=== PATIENT | male | born 1980 | race Caucasian/White ===

== ENCOUNTER 2022-06-24 18:54 | Emergency (ER) | payer OTHER ==
[~2022-06-24] VITALS: Ht 170.2 cm; Wt 99.8 kg
[2022-06-24 20:17] LABS: EOSINOPHILS ABSOLUTE AUTO 0.03 K/mm3 (0.00-0.68); EOSINOPHILS PERCENT AUTO 0 % (0-6)
[2022-06-24 20:27] LABS: BASOPHILS ABSOLUTE AUTO 0.05 K/mm3 (0.00-0.23); BASOPHILS PERCENT AUTO 0 % (0-2); Hematocrit 42.9 % (37.0-53.0); Hemoglobin 15.3 g/dL (13.5-17.5); IMMATURE GRAN ABSOLUTE AUTO 0.11 K/mm3 (0.00-0.10); IMMATURE GRAN PERCENT AUTO 1 % (0-1); LYMPHOCYTES ABSOLUTE AUTO 1.31 K/mm3 (0.84-5.20); LYMPHOCYTES PERCENT AUTO 9 % (21-46); MONOCYTES ABSOLUTE AUTO 0.43 K/mm3 (0.16-1.47); MONOCYTES PERCENT AUTO 3 % (4-13); Mean Corpuscular HGB Conc 35.7 g/dL (31.5-36.5); Mean Corpuscular Volume 90 fL (80-100); NEUTROPHILS ABSOLUTE AUTO 12.65 K/mm3 (1.96-9.15); NEUTROPHILS PERCENT AUTO 87 % (41-73); RDW Coefficient Variation 12.2 % (11.7-14.2); RDW Standard Deviation 40.6 fL (35.1-46.3); Red Blood Cell Count 4.78 M/mm3 (4.30-5.90); White Blood Cell Count 14.58 K/mm3 (4.00-11.30)
[2022-06-24 20:28] LABS: Mean Platelet Volume 9.9 fL (9.1-12.4); Platelet Count 329 K/mm3 (150-400)
[2022-06-24 20:32] LABS: Albumin, Blood 4.5 g/dL (3.4-5.0); Albumin/Globulin Ratio 1.2 (0.8-1.8); Bilirubin, Total 0.8 mg/dL (0.1-1.0); Bun/Creatinine Ratio 11.7 (12.0-20.0); Calcium, Blood 9.2 mg/dL (8.5-10.1); Creatinine, Blood 0.94 mg/dL (0.60-1.20); Globulin, Blood 3.6 g/dL (2.2-4.0); Potassium, Blood 4.4 mmol/L (3.5-5.5); Total Protein, Blood 8.1 g/dL (6.4-8.2)
[2022-06-25] MEDS ORDERED: AMOCLA875 PO (01:44)
[2022-06-25] MEDS ORDERED: PROM12.5S PR (02:15)
== END 2022-06-25 02:17 | disposition home or self-care (01) ==
LOC: ER 18:54
PROVIDERS: Student in an Organized Health Care Education/Training Program
DX: K52.9 Noninfective gastroenteritis and colitis, unspecified (principal); F17.210 Nicotine dependence, cigarettes, uncomplicated; Z88.8 Allergy status to other drugs, medicaments and biological substances
CPT/HCPCS: 74177; 80053; 83690; 85025; 96361; 96374-59; 96375; 96376; 99284-25; A9270; J1170; J1885; J2270; J2405; J2550; J7030; Q9967

== ENCOUNTER → 2022-06-26 | Outpatient (CLI) | payer MEDICARE, OTHER ==
[~2022-06-26] MED LIST: AMOCLA875 PO; ONDA4ODT MM; PROM12.5S PR
[2022-06-26 17:01] LABS: BASOPHILS ABSOLUTE AUTO 0.06 K/mm3 (0.00-0.23); BASOPHILS PERCENT AUTO 1 % (0-2); EOSINOPHILS ABSOLUTE AUTO 0.03 K/mm3 (0.00-0.68); EOSINOPHILS PERCENT AUTO 0 % (0-6); Hematocrit 41.7 % (37.0-53.0); IMMATURE GRAN ABSOLUTE AUTO 0.04 K/mm3 (0.00-0.10); IMMATURE GRAN PERCENT AUTO 0 % (0-1); LYMPHOCYTES ABSOLUTE AUTO 1.42 K/mm3 (0.84-5.20); LYMPHOCYTES PERCENT AUTO 13 % (21-46); MONOCYTES ABSOLUTE AUTO 0.43 K/mm3 (0.16-1.47); MONOCYTES PERCENT AUTO 4 % (4-13); Mean Corpuscular HGB 32.4 pg (26.0-34.0); Mean Corpuscular Volume 90 fL (80-100); NEUTROPHILS PERCENT AUTO 82 % (41-73); RDW Coefficient Variation 12.4 % (11.7-14.2); RDW Standard Deviation 40.5 fL (35.1-46.3); Red Blood Cell Count 4.63 M/mm3 (4.30-5.90); White Blood Cell Count 11.08 K/mm3 (4.00-11.30)
[2022-06-26 17:02] LABS: Mean Platelet Volume 9.4 fL (9.1-12.4); Platelet Count 286 K/mm3 (150-400)
[2022-06-26 17:10] LABS: Albumin, Blood 4.4 g/dL (3.4-5.0); Albumin/Globulin Ratio 1.3 (0.8-1.8); Bilirubin, Total 0.8 mg/dL (0.1-1.0); Calcium, Blood 8.8 mg/dL (8.5-10.1); Creatinine, Blood 1.07 mg/dL (0.60-1.20); Globulin, Blood 3.5 g/dL (2.2-4.0); Potassium, Blood 3.9 mmol/L (3.5-5.5); Total Protein, Blood 7.9 g/dL (6.4-8.2)
== END | disposition home or self-care (01) ==
LOC: LAB SHORT 16:52 → LAB 16:52
PROVIDERS: Physician Assistant Medical
DX: R10.84 Generalized abdominal pain (principal)
CPT/HCPCS: 80053; 85025

== ENCOUNTER 2022-06-29 02:59 | Emergency (ER) | payer MEDICARE ==
[~2022-06-29] VITALS: Ht 170.2 cm; Wt 96.8 kg
[~2022-06-29 02:59] MED LIST changes: -ONDA4ODT MM
[2022-06-29 05:53] LABS: Bun/Creatinine Ratio 14.1 (12.0-20.0); Calcium, Blood 8.9 mg/dL (8.5-10.1); Creatinine, Blood 0.92 mg/dL (0.60-1.20); Magnesium, Blood 2.2 mg/dL (1.6-2.4); Potassium, Blood 3.8 mmol/L (3.5-5.5)
[2022-06-29 05:56] LABS: BASOPHILS ABSOLUTE AUTO 0.07 K/mm3 (0.00-0.23); BASOPHILS PERCENT AUTO 1 % (0-2); EOSINOPHILS ABSOLUTE AUTO 0.04 K/mm3 (0.00-0.68); EOSINOPHILS PERCENT AUTO 0 % (0-6); Hematocrit 39.8 % (37.0-53.0); Hemoglobin 14.4 g/dL (13.5-17.5); IMMATURE GRAN ABSOLUTE AUTO 0.09 K/mm3 (0.00-0.10); IMMATURE GRAN PERCENT AUTO 1 % (0-1); LYMPHOCYTES ABSOLUTE AUTO 2.04 K/mm3 (0.84-5.20); LYMPHOCYTES PERCENT AUTO 18 % (21-46); MONOCYTES ABSOLUTE AUTO 0.59 K/mm3 (0.16-1.47); MONOCYTES PERCENT AUTO 5 % (4-13); Mean Corpuscular HGB 32.3 pg (26.0-34.0); Mean Corpuscular HGB Conc 36.2 g/dL (31.5-36.5); Mean Corpuscular Volume 89 fL (80-100); Mean Platelet Volume 9.6 fL (9.1-12.4); NEUTROPHILS ABSOLUTE AUTO 8.28 K/mm3 (1.96-9.15); NEUTROPHILS PERCENT AUTO 75 % (41-73); Platelet Count 372 K/mm3 (150-400); RDW Coefficient Variation 12.4 % (11.7-14.2); RDW Standard Deviation 40.4 fL (35.1-46.3); Red Blood Cell Count 4.46 M/mm3 (4.30-5.90); White Blood Cell Count 11.11 K/mm3 (4.00-11.30)
[2022-06-29] MEDS ORDERED: PROM12.5S PR (08:27)
[2022-06-29] MEDS ORDERED: ONDA4ODT MM (08:27)
== END 2022-06-29 08:49 | disposition home or self-care (01) ==
LOC: ER 02:59
PROVIDERS: Student in an Organized Health Care Education/Training Program
DX: K52.9 Noninfective gastroenteritis and colitis, unspecified (principal); R11.2 Nausea with vomiting, unspecified; F12.90 Cannabis use, unspecified, uncomplicated; F17.210 Nicotine dependence, cigarettes, uncomplicated; Z88.8 Allergy status to other drugs, medicaments and biological substances
CPT/HCPCS: 80048; 83735; 85025; A9270; J0780; J1790; J1885; J2405; J7030

== ENCOUNTER 2022-09-26 09:27 | Emergency (ER) | payer MEDICARE, OTHER ==
[~2022-09-26] VITALS: Ht 175.3 cm; Wt 86.2 kg
[~2022-09-26 09:27] MED LIST changes: +ONDA4ODT MM
[2022-09-26 11:33] LABS: BASOPHILS ABSOLUTE AUTO 0.07 K/mm3 (0.00-0.23); BASOPHILS PERCENT AUTO 1 % (0-2); EOSINOPHILS ABSOLUTE AUTO 0.02 K/mm3 (0.00-0.68); EOSINOPHILS PERCENT AUTO 0 % (0-6); Hematocrit 44.4 % (37.0-53.0); IMMATURE GRAN ABSOLUTE AUTO 0.06 K/mm3 (0.00-0.10); IMMATURE GRAN PERCENT AUTO 0 % (0-1); LYMPHOCYTES ABSOLUTE AUTO 1.59 K/mm3 (0.84-5.20); LYMPHOCYTES PERCENT AUTO 11 % (21-46); MONOCYTES ABSOLUTE AUTO 0.74 K/mm3 (0.16-1.47); MONOCYTES PERCENT AUTO 5 % (4-13); Mean Corpuscular HGB 30.9 pg (26.0-34.0); Mean Corpuscular Volume 86 fL (80-100); Mean Platelet Volume 9.1 fL (9.1-12.4); NEUTROPHILS ABSOLUTE AUTO 12.37 K/mm3 (1.96-9.15); NEUTROPHILS PERCENT AUTO 83 % (41-73); Platelet Count 386 K/mm3 (150-400); RDW Coefficient Variation 12.2 % (11.7-14.2); RDW Standard Deviation 38.5 fL (35.1-46.3); Red Blood Cell Count 5.17 M/mm3 (4.30-5.90); White Blood Cell Count 14.85 K/mm3 (4.00-11.30)
[2022-09-26 11:54] LABS: Albumin, Blood 4.4 g/dL (3.4-5.0); Albumin/Globulin Ratio 1.3 (0.8-1.8); Bilirubin, Total 1.3 mg/dL (0.1-1.0); Bun/Creatinine Ratio 14.4 (12.0-20.0); Calcium, Blood 9.5 mg/dL (8.5-10.1); Creatinine, Blood 1.04 mg/dL (0.60-1.20); Globulin, Blood 3.4 g/dL (2.2-4.0); Potassium, Blood 3.6 mmol/L (3.5-5.5); Total Protein, Blood 7.8 g/dL (6.4-8.2)
[2022-09-26] MEDS ORDERED: Miralax17 GM PO (14:38)
[2022-09-26] MEDS ORDERED: PHENERGAN25 MG PR (14:38)
== END 2022-09-26 14:56 | disposition home or self-care (01) ==
LOC: ER 09:27
PROVIDERS: Physician Assistant
DX: R10.33 Periumbilical pain (principal); F17.210 Nicotine dependence, cigarettes, uncomplicated; Z88.8 Allergy status to other drugs, medicaments and biological substances; Z79.899 Other long term (current) drug therapy; Z98.890 Other specified postprocedural states
CPT/HCPCS: 36415; 74018; 80053; 83690; 85025; A9270; J1170; J1885; J2060; J2405; J2550; J7120

== ENCOUNTER 2022-12-16 07:08 | Day surgery (SDC) | payer MEDICARE, OTHER ==
[~2022-12-16] VITALS: Ht 170.2 cm; Wt 80.0 kg
[~2022-12-16 07:08] MED LIST changes: +CLON.5 PO; +Miralax17 GM PO; +PHENERGAN25 MG PR; +PROP10 PO; +Prinivil10 MG PO
--- NOTE | 2022-12-16 07:50 | NUR ---
History, Chart, Medications and Allergies reviewed before start of procedure.LUNGS CLEAR. PT STATES SMOKED MARIJUANA AND CIGARETTE THIS MORNING APPROX AN HOUR AGO. PT QUITE ANXIOUS THIS MORNING. PT STATES HE THREW UP ABOUT HALF HIS PREP THIS MORNING. STATES LAST BM WAS CLEAR YELLOW WATER
--- NOTE | 2022-12-16 08:27 | NUR ---
12/16/22 0827 Briana Mary See Anesthesia record History, Chart, Medications and Allergies reviewed before start of procedure. MONITOR INTACT WITH CONTINUOUS PULSE OXIMETRY, CONTINUOUS END TITAL CO2, AND INTERMITTENT BLOOD PRESSURE. 3-LEAD EKG REVIEWED WITH PHYSICIAN PRIOR TO START OF PROCEDURE. O2 VIA N/C INTACT THROUGHOUT SEDATION/PROCEDURE. Bite Block Placed
--- NOTE | 2022-12-16 09:48 | NUR ---
REPORT RECEIVED FROM IAN العراقي RN. PT ABLE TO REPOSITION SELF IN BED. PT REQUESTING PO FLUIDS AND TOLERATING THEM WELL. PT DENIES PAIN OR DISCOMFORT AT THIS TIME.
--- NOTE | 2022-12-16 10:34 | NUR ---
1019 PT REPORT NAUSEA REQUESTING MEDICATION. PT MEDICATED PER ORDERS. PT REPORT NAUSEA RELIEVED AND READY TO GO HOME.
--- NOTE | 2022-12-16 10:36 | NUR ---
Patient up to Ambulate independently. Gait steady. VSS. Discharge instructions reviewed with patient. Patient verbalizes understanding. Copy given to patient to take home. Patient States Post-Procedure ride home has been arranged. Discharged via wheelchair to private car for ride home. PT BELONGINGS RETURNED TO PT.
== END 2022-12-16 22:50 | disposition home or self-care (01) ==
LOC: ORSCMMR 07:08 → ORSCSDS 08:00 → ORSCMMR 08:30 → ORSCSDS 12:45 → ORSCMMR 12:45
PROVIDERS: Student in an Organized Health Care Education/Training Program
PROC: 0DBC8ZX Excision of Ileocecal Valve, Via Natural or Artificial Opening Endoscopic, Diagnostic (ICD-10-PCS; principal; 2022-12-16 08:30)
PROC: 0DB98ZX Excision of Duodenum, Via Natural or Artificial Opening Endoscopic, Diagnostic (ICD-10-PCS; principal; 2022-12-16 08:30)
PROC: 0DB78ZX Excision of Stomach, Pylorus, Via Natural or Artificial Opening Endoscopic, Diagnostic (ICD-10-PCS; principal; 2022-12-16 08:30)
PROC: 0DB58ZX Excision of Esophagus, Via Natural or Artificial Opening Endoscopic, Diagnostic (ICD-10-PCS; principal; 2022-12-16 08:30)
PROC: 0DBP8ZX Excision of Rectum, Via Natural or Artificial Opening Endoscopic, Diagnostic (ICD-10-PCS; principal; 2022-12-16 08:30)
PROC: 0DBL8ZX Excision of Transverse Colon, Via Natural or Artificial Opening Endoscopic, Diagnostic (ICD-10-PCS; principal; 2022-12-16 08:30)
PROC: 0DBE8ZX Excision of Large Intestine, Via Natural or Artificial Opening Endoscopic, Diagnostic (ICD-10-PCS; principal; 2022-12-16 08:30)
DX: R19.7 Diarrhea, unspecified (principal); R10.30 Lower abdominal pain, unspecified; K21.9 Gastro-esophageal reflux disease without esophagitis; R11.0 Nausea; K29.70 Gastritis, unspecified, without bleeding; K44.9 Diaphragmatic hernia without obstruction or gangrene; K63.5 Polyp of colon; K62.1 Rectal polyp; K57.30 Diverticulosis of large intestine without perforation or abscess without bleeding; K64.8 Other hemorrhoids; I10 Essential (primary) hypertension; J44.9 Chronic obstructive pulmonary disease, unspecified; F17.210 Nicotine dependence, cigarettes, uncomplicated; F41.8 Other specified anxiety disorders; Z79.899 Other long term (current) drug therapy
CPT/HCPCS: 88305; 88342; J2250; J2405; J2704; J3010; J7120

== ENCOUNTER 2023-10-18 04:23 | Inpatient (IN) | payer MEDICARE, OTHER ==
[~2023-10-18] VITALS: Ht 170.2 cm; Wt 92.8 kg
[2023-10-18] MEDS ORDERED: Lidocaine 4% 1 Patch TOP ONE (05:00)
[2023-10-18] MEDS ORDERED: Ipratropium/Albuterol SulF 2.5-0.5MG/3 ML Amp INH ONE (06:15)
[2023-10-18] MEDS ORDERED: Ketorolac Tromethamine 30mg Vial IM ONE (06:15)
[2023-10-18] MEDS ORDERED: Acetaminophen 500 MG Tab PO ONE (06:15)
[2023-10-18] MEDS ORDERED: PredniSONE 20 MG Tab PO ONE (06:15)
[2023-10-18 07:19] LABS: Bun/Creatinine Ratio 12.2 (12.0-20.0); Calcium, Blood 9.4 mg/dL (8.5-10.1); Creatinine, Blood 0.74 mg/dL (0.60-1.20)
[2023-10-18 08:05] LABS: BASOPHILS ABSOLUTE AUTO 0.14 K/mm3 (0.00-0.23); BASOPHILS PERCENT AUTO 1 % (0-2); EOSINOPHILS ABSOLUTE AUTO 2.12 K/mm3 (0.00-0.68); EOSINOPHILS PERCENT AUTO 14 % (0-6); Hematocrit 42.1 % (37.0-53.0); Hemoglobin 14.7 g/dL (13.5-17.5); IMMATURE GRAN ABSOLUTE AUTO 0.06 K/mm3 (0.00-0.10); IMMATURE GRAN PERCENT AUTO 0 % (0-1); LYMPHOCYTES ABSOLUTE AUTO 2.08 K/mm3 (0.84-5.20); LYMPHOCYTES PERCENT AUTO 14 % (21-46); MONOCYTES ABSOLUTE AUTO 0.72 K/mm3 (0.16-1.47); MONOCYTES PERCENT AUTO 5 % (4-13); Mean Corpuscular HGB 31.8 pg (26.0-34.0); Mean Corpuscular HGB Conc 34.9 g/dL (31.5-36.5); Mean Corpuscular Volume 91 fL (80-100); Mean Platelet Volume 8.3 fL (9.1-12.4); NEUTROPHILS ABSOLUTE AUTO 9.89 K/mm3 (1.96-9.15); NEUTROPHILS PERCENT AUTO 66 % (41-73); Platelet Count 461 K/mm3 (150-400); RDW Coefficient Variation 12.1 % (11.7-14.2); RDW Standard Deviation 39.7 fL (35.1-46.3); Red Blood Cell Count 4.62 M/mm3 (4.30-5.90); White Blood Cell Count 15.01 K/mm3 (4.00-11.30)
[2023-10-18 08:27] LABS: BASOPHILS PERCENT MAN 0 % (0-2); EOSINOPHILS ABSOLUTE MAN 2.25 K/mm3 (0.00-0.68); EOSINOPHILS PERCENT MAN 15 % (0-6); LYMPHOCYTES ABSOLUTE MAN 0.45 K/mm3 (0.84-5.20); LYMPHOCYTES PERCENT MAN 3 % (21-46); MONOCYTES ABSOLUTE MAN 0.15 K/mm3 (0.16-1.47); MONOCYTES PERCENT MAN 1 % (4-13); NEUTROPHILS ABSOLUTE MAN 12.15 K/mm3 (1.96-9.15); SEG NEUTROPHILS PERCENT MAN 81 % (41-73); TOTAL CELLS COUNTED 100
[2023-10-18] MEDS ORDERED: Morphine Sulfate 4 MG/1 ML Injection IV ONE ×2 (09:10→11:50)
[2023-10-18 09:42] LABS: International Normalized Ratio 0.98; Prothrombin Time Results 10.3 Sec (9.7-11.5)
[2023-10-18 11:08] LABS: Automated BF RBC Count 0.073 M/mm3 (0-0); Automated BF WBC Count 5.457 K/mm3 (0-999)
[2023-10-18 11:10] LABS: Body Fluid WBC Count 5457 /mm3 (0-999); RBC Count, Body Fluid 73000 /mm3 (0-0)
[2023-10-18 11:34] LABS: Glucose, Body Fluid 104 mg/dL; Lactate Dehydrogenase, Body Fl 855 U/L
[2023-10-18] MEDS ORDERED: CefTRIAXone Sodium 1,000 MG in NS 50 ML IV ONE (11:50)
[2023-10-18] MEDS ORDERED: NS 1,000 ML IV SCH (11:50)
[2023-10-18] MEDS ORDERED: Azithromycin 500 MG in NS 250 ML IV ONE (11:50)
[2023-10-18 12:39] LABS: Total Cell Count, Body Fluid 100
[2023-10-18 12:40] LABS: Appearance, Body Fluid Hazy (Clear); Color, Body Fluid Red (None-Yellow)
[2023-10-18] MEDS ORDERED: Nicotine 21 MG PATCH TOP ONE (12:45)
[2023-10-18] MEDS ORDERED: HYDROmorphone HCl/Pf 1MG SYR IV PRN (13:10)
[2023-10-18] MEDS ORDERED: OxyCODONE HCL 5 MG TAB PO PRN (13:15)
[2023-10-18] MEDS ORDERED: FLU VACC QS2023-24(6MOS UP)/PF 60 MCG/0.5 ML SYRINGE IM SCH (13:15)
[2023-10-18] MEDS ORDERED: Acetaminophen 325 MG TABLET PO PRN ×2 (13:15)
[2023-10-18] MEDS ORDERED: Promethazine HCl 25 MG Supp PR PRN (13:20)
[2023-10-18] MEDS ORDERED: ClonazePAM 0.5 MG Tab PO PRN (13:20)
[2023-10-18] MEDS ORDERED: Ketorolac Tromethamine 30mg Vial IV PRN (13:30)
[2023-10-18] MEDS ORDERED: Propranolol HCL 20 MG TAB PO SCH (14:00)
[2023-10-18 15:55] VITALS: BP 145/99
--- NOTE | 2023-10-18 16:29 | NUR ---
SHIFT SUMMARY/ADMISSION NOTE: PATIENT IS A&OX4. PATIENT HAS AN ELEVATED SBP BUT PATIENT REPORTS "THAT IS ABOUT NORMAL FOR ME". PATIENT REPORTS 5/10 PAIN TO HIS RIGHT SIDE AT THIS TIME. HE HAS A BANDAID ON HIS LEFT UPPER BACK FROM A CT GUIDED THORACENTESIS FROM ER THAT HAS LIGHT BRUISING AROUND IT BUT THE BANDAID IS C/D/I. PATIENT IS TOLERATING SMALL AMOUNTS OF PO INTAKE AND HE REPORTS VOIDING IN THE ER BATHROOM. HE IS CURRENTLY LAYING IN BED WITH CALL LIGHT IN REACH AND FAMILY AT BEDSIDE. PATIENT WAS ABLE TO STAND AND WALK FROM THE WHEELCHAIR TO THE BED IN THE ROOM INDEP.
[2023-10-18] MEDS ORDERED: Lidocaine 4% 1 Patch TOP SCH (17:00)
[2023-10-18 19:09] VITALS: BP 136/90
[2023-10-18 20:17] LABS: Influenza A, PCR NEGATIVE (NEGATIVE); Influenza B, PCR NEGATIVE (NEGATIVE); Resp Syncytial Virus, PCR NEGATIVE (NEGATIVE); SARS-Cov-2 (COVID-19) PCR, MMC NEGATIVE (NEGATIVE)
[2023-10-18] MEDS ORDERED: Sennosides 8.6 MG Tab PO SCH (21:00)
[2023-10-18] MEDS ORDERED: Docusate Sodium 100 MG Cap PO SCH (21:00)
[2023-10-18 23:40] VITALS: BP 141/95
[2023-10-18] MEDS ORDERED: Albuterol 2.5 MG/3 ML VIAL INH PRN (23:55)
[2023-10-19 02:17] VITALS: BP 145/92
[2023-10-19 02:45] LABS: BASOPHILS ABSOLUTE AUTO 0.11 K/mm3 (0.00-0.23); BASOPHILS PERCENT AUTO 1 % (0-2); EOSINOPHILS ABSOLUTE AUTO 2.01 K/mm3 (0.00-0.68); EOSINOPHILS PERCENT AUTO 14 % (0-6); Hematocrit 40.4 % (37.0-53.0); Hemoglobin 14.2 g/dL (13.5-17.5); IMMATURE GRAN ABSOLUTE AUTO 0.06 K/mm3 (0.00-0.10); IMMATURE GRAN PERCENT AUTO 0 % (0-1); LYMPHOCYTES ABSOLUTE AUTO 2.94 K/mm3 (0.84-5.20); LYMPHOCYTES PERCENT AUTO 20 % (21-46); MONOCYTES ABSOLUTE AUTO 1.03 K/mm3 (0.16-1.47); MONOCYTES PERCENT AUTO 7 % (4-13); Mean Corpuscular HGB 31.8 pg (26.0-34.0); Mean Corpuscular HGB Conc 35.1 g/dL (31.5-36.5); Mean Corpuscular Volume 91 fL (80-100); Mean Platelet Volume 8.2 fL (9.1-12.4); NEUTROPHILS ABSOLUTE AUTO 8.48 K/mm3 (1.96-9.15); NEUTROPHILS PERCENT AUTO 58 % (41-73); Platelet Count 424 K/mm3 (150-400); RDW Coefficient Variation 12.3 % (11.7-14.2); RDW Standard Deviation 40.2 fL (35.1-46.3); Red Blood Cell Count 4.46 M/mm3 (4.30-5.90); White Blood Cell Count 14.63 K/mm3 (4.00-11.30)
[2023-10-19] MEDS ORDERED: QUEtiapine Fumarate 50 MG TAB PO SCH (02:50)
[2023-10-19 03:02] LABS: Bun/Creatinine Ratio 13.3 (12.0-20.0); Calcium, Blood 8.8 mg/dL (8.5-10.1); Creatinine, Blood 0.83 mg/dL (0.60-1.20); Potassium, Blood 3.8 mmol/L (3.5-5.5)
--- NOTE | 2023-10-19 04:22 | NUR ---
SHIFT SUMMARY VSS. PT HAS REMAINED ON RA T/O THE NIGHT. OBTAINED ORDER FOR Q2 PRN ALBUTEROL TX FOR WHEEZING. PT REPORTS RELIEF FROM THESE. THORACENTESIS SITE REMAINS C/D/I. BANDAGE IN PLACE W/ SMALL DOT OF DRAINAGE. PT HAD A DIFFICULT NIGHT R/T ANXIETY AND DIFFICULTY SLEEPING. RECIEVED ORDER FOR NIGHTLY SEROQUEL. PT MEDICATED FOR PAIN WITH ORAL AND IV MEDICATION W/MINIMAL RELIEF. PT EDUCATED ABOUT THE DIFFICULTY OF PAIN MANAGEMENT W/RIB PAIN AND MOVEMENT/COUGHING. GIVEN HEATED BLANKET FOR SPLINTING. PT HAS REMAINED INDEP T/O THE NIGHT, VOIDING W/O DIFFICULTY. NO BM NOTED. TOLLERATING PO INTAKE W/O N/V. PLAN TO CONTINUE ABX AND PAIN MANAGEMENT.
[2023-10-19] MEDS ORDERED: Ipratropium/Albuterol SulF 2.5-0.5MG/3 ML Amp INH SCH (06:05)
[2023-10-19 07:50] VITALS: BP 127/82
[2023-10-19] MEDS ORDERED: Lisinopril 10 MG Tab PO SCH (09:00)
[2023-10-19] MEDS ORDERED: Metoprolol Succinate 25 MG TABCR PO SCH (09:00)
[2023-10-19] MEDS ORDERED: Azithromycin 250 MG Tab PO SCH (09:00)
[2023-10-19] MEDS ORDERED: Enoxaparin 40 MG/0.4 ML SYR SC SCH (09:00)
[2023-10-19] MEDS ORDERED: Nicotine 21 MG PATCH TOP SCH (09:00)
[2023-10-19] MEDS ORDERED: Polyethylene Glycol 3350 17 gm PO SCH (09:00)
[2023-10-19] MEDS ORDERED: CefTRIAXone Sodium 1,000 MG in NS 50 ML IV SCH (09:00)
--- NOTE | 2023-10-19 11:42 | NUR ---
PATIENT ASKED TO SPEAK WITH PATIENT ADVOCATE.RN CALLED AND WENT IN TO SPEAK WITH PATIENT.RN LEFT.PATIENT CALLED AGAIN FOR PAIN MEDS AND AGAIN ASKED TO SPEAK WITH PATIENT ADVOCATE. THIS TEST DESIGNER ASKED KAROLINE TO SPEAK WITH PATIENT DUE TO PATIENT REQUESTING. KAROLINE IN ROOM WITH PATIENT WHILE ROUNDING AT THIS TIME.
--- NOTE | 2023-10-19 12:49 | NUR ---
PT RESTING IN BED, RATES PAIN LEVEL AT 4/10 CURRENTLY, PT STATES HE WOULD LIKE TO GET SOME SLEEP AND DOES NOT WANT TO BE WOKEN UP DURING HOURLY ROUNDS, EXPLAINED TO PT THAT STAFF HAS TO CHECK ON HIM EVERY HOUR AND AGREES TO LEAVE HIS DOOR AJAR SO STAFF CAN CHECK ON HIM BUT REQUESTS NOT TO BE WOKEN UP DURING ROUNDS.
[2023-10-19 15:30] VITALS: BP 135/81
[2023-10-19] MEDS ORDERED: OxyCODONE HCL 5 MG TAB PO PRN (15:41)
--- NOTE | 2023-10-19 17:17 | NUR ---
SUMMARY DENIED ANY SOB TODAY, CONT. TO HAVE R SIDE "RIB PAIN" MEDICATED PER EMAR, TOOK A SHOWER TODAY, TOLERATED WELL, CONT. TO HAVE A NPC, NEB TX'S PER RT WA, AMBULATED DOWN THE HALLS TOLERATED WELL, TOOK A NAP MOST OF THE AFTERNOON, NO OTHER CHANGES THIS SHIFT.
[2023-10-19 18:52] VITALS: BP 135/96
--- NOTE | 2023-10-20 02:04 | NUR ---
MEDICATION EDUCATION PT STATED THAT HE FELT IF HE WAS BEING PUNISHED WHEN HE WAS ASKING FOR DILAUDID AFTER I ASKED IF HE FELT HE COULD TOLERATE WAITING AN HOUR TO TAKE THE ORAL PAIN MEDICATION, THAT HE HAS REPORTED IS WORKING BETTER W/DOSAGE INCREASE. PATIENT EXPLAINED THAT THE "PUSH" FOR ORAL PAIN MEDICATION MAKES HIM FEEL LIKE HE IS MISUSING THE IV PAIN MEDICATION AND THAT HE IS BEING JUDGED. THIS RN SAT WITH THE PT AND TALKED FOR A WHILE. I EDUCATED THE PATIENT THAT HE IS UTILIZING THE DILAUDID APPROPRIATELY, BUT THAT IT IS MY JOB TO ENCOURAGE AND ASSESS IF HE IS ABLE TO TOLLERATE GOING THE COMPLETE FOUR HOURS BETWEEN PO DOSING. THIS RN EXPLAINED THAT THE DILAUDID IS FOR BREAKTHROUGH PAIN AND THAT HIS UNDERSTANDING IS CORRECT, BUT THAT IS ALWAYS ENCOURAGED TO UTILIZE LITTLE PAIN MEDICATION TOLLERABLE. THIS RN ALSO EDUCATED THE PT ABOUT DEVELOPING REALISTIC PAIN EXPECTATIONS AND LEARING HOW TO TOLLERATE AND IMPROVE THE PAIN NONPHARMACOLOGICALLY BEFORE USING IV PAIN MEDICATION. PT VERBALIZED HIS UNDERSTANDING AND BECAME TEARFUL. PT STATES THAT HE FEELS LIKE THE CARE HE HAS RECIEVED HAS BEEN GOOD, BUT DUE TO HIS EMOTIONAL STATUS, HIS FEELINGS OF ANXIETY ARE AMPLIFIED. PATIENT THEN ASKED FOR A SNACK AND IT WAS PROVIDED.
[2023-10-20 03:02] VITALS: BP 132/76
[2023-10-20 04:48] LABS: Hematocrit 39.2 % (37.0-53.0); Hemoglobin 13.7 g/dL (13.5-17.5); Mean Corpuscular HGB 32.2 pg (26.0-34.0); Mean Corpuscular HGB Conc 34.9 g/dL (31.5-36.5); Mean Corpuscular Volume 92 fL (80-100); Mean Platelet Volume 8.2 fL (9.1-12.4); Platelet Count 376 K/mm3 (150-400); RDW Coefficient Variation 12.3 % (11.7-14.2); RDW Standard Deviation 41.8 fL (35.1-46.3); Red Blood Cell Count 4.25 M/mm3 (4.30-5.90); White Blood Cell Count 12.15 K/mm3 (4.00-11.30)
[2023-10-20 05:10] LABS: Albumin, Blood 2.9 g/dL (3.4-5.0); Albumin/Globulin Ratio 0.8 (0.8-1.8); Bilirubin, Total 0.4 mg/dL (0.1-1.0); Bun/Creatinine Ratio 14.9 (12.0-20.0); Calcium, Blood 8.1 mg/dL (8.5-10.1); Creatinine, Blood 0.81 mg/dL (0.60-1.20); Globulin, Blood 3.6 g/dL (2.2-4.0); Potassium, Blood 3.6 mmol/L (3.5-5.5); Total Protein, Blood 6.5 g/dL (6.4-8.2)
--- NOTE | 2023-10-20 06:25 | NUR ---
SHIFT SUMMARY VSS. PT GOT MINIMAL SLEEP T/O THE NIGHT D/T ANXIETY AND PAIN. MEDICATED FOR PAIN PER EMAR W/ SOME RELIEF. PT REPORTS SPASMS HAVE INCREASED ON RIGHT RIBS. PT CURIOUS TO SEE IF HE CAN INCREASE LIDOCANE PATCH USE AND TORADOL, HE FELT THESE ARE BENEFICIAL TO HIS PAIN CONTROL. PT AMBULATING TO BATHROOM INDEP, VOIDING W/O DIFFICULTY. NO STOOLS THIS SHIFT BUT REPORTS A STOOL ON PREVIOUS SHIFT. VSS. PT REMAINS ON RA, CONTINUOUS BIOX IN PLACE. PLEASE SEE PREVIOUS NURSE NOTE FOR PAIN MEDICATION DISCUSSION.
[2023-10-20 07:24] VITALS: BP 135/94
[2023-10-20] MEDS ORDERED: Ketorolac Tromethamine 15mg Vial IV PRN (08:00)
[2023-10-20] MEDS ORDERED: Lidocaine 4% 1 Patch TOP SCH (09:00)
[2023-10-20] MEDS ORDERED: DiphenhydrAMINE HCl 50 MG Cap PO ONE (10:05)
--- NOTE | 2023-10-20 10:15 | NUR ---
THIS NURSE CALLED DR. SAGE PER PATIENT REQUEST FOR A SLEEP AIDE AND PATIENT STATED "I HAVE ONLY HAD 4-5 HOURS OF SLEEP SINCE BEING HERE. WHY DON'T YOU GUYS WANT TO TREAT ME TO HELP ME SLEEP?". DR. SAGE ORDERED PO BENADRYL FOR THE PATIENT. THIS NURSE OFFERED THE PO BENADRYL TO THE PATIENT, BUT PATIENT STARTED CRYING STATING "I COULD TAKE THE PILL BENADRYL ALL DAY AND IT WILL NOT MAKE ME SLEEPY AT ALL. IV BENADRYL OR PHENERGAN IS THE ONLY THING THAT WOULD ACTUALLY MAKE ME SLEEPY". THIS NURSE THEN CALLED DR. SAGE AND LEFT A MESSAGE PATIENT WAS WANTING EITHER PHENERGAN OR BENADRYL IV IF POSSIBLE. DR. SAGE PLACED AN ORDER FOR PO PHENERGAN FOR THE PATIENT. THIS NURSE OFFERED THE PO PHENERGAN TO THE PATIENT. PATIENT THEN BURSTED INTO TEARS STATING "I NEED TO SPEAK TO THE PATIENT ADVOCATE THIS IS RIDICULOUS. ALL I WANT IS TO BE KNOCKED OUT AND YOU GUYS HAVE PLENTY OF MEDICATIONS THAT CAN DO THAT BUT YOU GUYS WON'T GIVE IT TO ME". THIS NURSE EDUCATED THE PATIENT SAYING DR. SAGE IS AWARE AND IS GOING TO BE ROUNDING ON HER PATIENTS SOON, BUT THAT THIS IS ALL THIS NURSE HAS TO OFFER AT THIS TIME. PATIENT THEN JUST STATED "CAN YOU PLEASE JUST GET ME THE PATIENT ADVOCATE". THIS NURSE THEN LET THE PATIENT KNOW THAT THIS NURSE WOULD CALL THEM TO COME TALK WITH HIM. THIS NURSE ALSO ASKED HOW HIS PAIN WAS DOING AFTER THE PO OXY AND IV TORADOL. PATIENT STATED "THE IV TORADOL HELPS WITH MY PAIN MORE THAN THE PILLS. I HAVE NO PAIN AT THIS TIME". PATIENT IS LAYING IN BED WITH CALL LIGHT IN REACH.
[2023-10-20] MEDS ORDERED: Promethazine HCl 25 MG Tab PO ONE (11:00)
[2023-10-20] MEDS ORDERED: Promethazine HCl 25 MG Tab PO PRN (11:00)
[2023-10-20 15:41] VITALS: BP 126/89
[2023-10-20] MEDS ORDERED: ALBU90OI INH (15:53)
[2023-10-20] MEDS ORDERED: Acetaminophen325 M1 PO (15:53)
[2023-10-20] MEDS ORDERED: AMOCLA875 PO (15:54)
[2023-10-20] MEDS ORDERED: NAPR500 PO (15:56)
[2023-10-20] MEDS ORDERED: COLACE100 MG PO (15:56)
[2023-10-20] MEDS ORDERED: LIDO700A20 TOP (15:57)
[2023-10-20] MEDS ORDERED: METO25ER PO (15:58)
[2023-10-20] MEDS ORDERED: OXAYDO5 M2 PO (15:59)
[2023-10-20] MEDS ORDERED: NICO21TP TOP (15:59)
--- NOTE | 2023-10-20 16:24 | NUR ---
DISCHARGE NOTE: PATIENT WAS EDUCATED ON DISCHARGE INSTRUCTIONS. HE VERBALIZED UNDERSTANDING OF INSTRUCTIONS AND HAD NO FURTHER QUESTIONS AT THIS TIME. IV WAS TAKEN OUT AND WNL. PAIN IS MANAGED WITH PO PAIN MEDS. PATIENTS HARD PERSCRIPTION WAS PLACED IN DISCHARGE FOLDER WHICH THE PATIENT IS CARRYING IN HAND. PATIENT DENIES SOB OR CHEST PAIN. HE IS INDEP. IN THE ROOM. HE IS TOLERATING PO INTAKE AND IS VOIDING/PASSING GAS. OXYGEN SATS HAVE BEEN >90% ON RA THROUGHOUT SHIFT. PATIENT IS DRESSED AND HAS PERSONAL ITEMS IN THE ROOM GATHERED. PATIENTS OTHER PERSCRIPTIONS WERE CALLED IN TO THE [facility] [address] PER PATIENT REQUEST. PATIENT IS BEING WHEELCHAIRED OUT TO PATIENTS FAMILY MEMBERS CAR TO BE TAKEN HOME.
--- NOTE | 2023-10-20 16:56 | NUR ---
PATIENT JUST CALLED THE OB/GYN PHYSICIAN ASKING TO HAVE THE PERSCRIPTIONS RE-FAXED TO [facility] INSTEAD OF [facility] [address]. THIS NURSE JUST RE-FAXED TO [facility] AND IT DID GO THROUGH WITH A CONFIRMATION PAPER.
== END 2023-10-20 16:27 | disposition home or self-care (01) | DRG 194 ==
LOC: ER 04:23 → SURS 15:09
PROVIDERS: Student in an Organized Health Care Education/Training Program; ADMIT Internal Medicine
PROC: 0W9B3ZZ Drainage of Left Pleural Cavity, Percutaneous Approach (ICD-10-PCS; principal; 2023-10-18)
PROC: 3E03329 Introduction of Other Anti-infective into Peripheral Vein, Percutaneous Approach (ICD-10-PCS; 2023-10-18)
DX: J18.9 Pneumonia, unspecified organism (principal); J91.8 Pleural effusion in other conditions classified elsewhere; M84.48XA Pathological fracture, other site, initial encounter for fracture; I10 Essential (primary) hypertension; F41.9 Anxiety disorder, unspecified; F17.210 Nicotine dependence, cigarettes, uncomplicated; F12.90 Cannabis use, unspecified, uncomplicated; Z11.52 Encounter for screening for COVID-19
CPT/HCPCS: 0241U; 32555; 36415; 71045; 71101; 71260; 80048; 80053; 82945; 83605; 83615; 83880; 84145; 84157; 85025; 85027; 85610; 85730; 87040; 87070; 87075; 87205; 88108; 88305; 89051; 93005; 93010; 94640; 94664; 94760; 94762; 96365-59; 96367-59; 96375-59; 96376-59; 99285-25; A9270; J0456; J0696; J1170; J1650; J1885; J2270; J7030; J7050; J7512; Q9967

== ENCOUNTER 2023-10-30 14:31 | Emergency (ER) | payer MEDICARE, OTHER ==
[~2023-10-30] VITALS: Ht 170.2 cm; Wt 90.7 kg
[~2023-10-30 14:31] MED LIST changes: -PROM25 PO
[2023-10-30 14:38] VITALS: BP 113/75
[2023-10-30] MEDS ORDERED: Ondansetron HCl 2 MG / ML 2ML Vial IV ONE (17:05)
[2023-10-30] MEDS ORDERED: NS 1,000 ML IV SCH (17:05)
[2023-10-30] MEDS ORDERED: Droperidol 5 mg/2 ml Vial IV ONE (18:05)
[2023-10-30] MEDS ORDERED: PROM25 PO (19:42)
== END 2023-10-30 19:52 | disposition home or self-care (01) ==
LOC: ER 14:31
DX: R11.2 Nausea with vomiting, unspecified (principal); F17.210 Nicotine dependence, cigarettes, uncomplicated; R10.9 Unspecified abdominal pain; Z88.8 Allergy status to other drugs, medicaments and biological substances; Z79.899 Other long term (current) drug therapy
CPT/HCPCS: 93005; 93010; 96361; 96374; 96375; 99284-25; J1790; J2405; J7030

== ENCOUNTER → 2023-10-30 | Outpatient (CLI) | payer MEDICARE, OTHER ==
[~2023-10-30] MED LIST changes: +ALBU90OI INH; +Acetaminophen325 M1 PO; +COLACE100 MG PO; +LIDO700A20 TOP; +METO25ER PO; +NAPR500 PO; +NICO21TP TOP; +OXAYDO5 M2 PO; +PROM25 PO
[2023-10-30 13:34] LABS: BASOPHILS ABSOLUTE AUTO 0.17 K/mm3 (0.00-0.23); BASOPHILS PERCENT AUTO 1 % (0-2); EOSINOPHILS ABSOLUTE AUTO 1.86 K/mm3 (0.00-0.68); EOSINOPHILS PERCENT AUTO 12 % (0-6); Hematocrit 45.3 % (37.0-53.0); Hemoglobin 15.9 g/dL (13.5-17.5); IMMATURE GRAN ABSOLUTE AUTO 0.06 K/mm3 (0.00-0.10); IMMATURE GRAN PERCENT AUTO 0 % (0-1); LYMPHOCYTES ABSOLUTE AUTO 2.03 K/mm3 (0.84-5.20); LYMPHOCYTES PERCENT AUTO 13 % (21-46); MONOCYTES ABSOLUTE AUTO 0.89 K/mm3 (0.16-1.47); MONOCYTES PERCENT AUTO 6 % (4-13); Mean Corpuscular HGB 31.3 pg (26.0-34.0); Mean Corpuscular HGB Conc 35.1 g/dL (31.5-36.5); Mean Corpuscular Volume 89 fL (80-100); Mean Platelet Volume 8.3 fL (9.1-12.4); NEUTROPHILS ABSOLUTE AUTO 10.83 K/mm3 (1.96-9.15); NEUTROPHILS PERCENT AUTO 68 % (41-73); Platelet Count 537 K/mm3 (150-400); RDW Standard Deviation 39.2 fL (35.1-46.3); Red Blood Cell Count 5.08 M/mm3 (4.30-5.90); White Blood Cell Count 15.84 K/mm3 (4.00-11.30)
[2023-10-30 13:52] LABS: Albumin, Blood 3.9 g/dL (3.4-5.0); Albumin/Globulin Ratio 0.8 (0.8-1.8); Bilirubin, Total 1.4 mg/dL (0.1-1.0); Bun/Creatinine Ratio 10.6 (12.0-20.0); Calcium, Blood 9.8 mg/dL (8.5-10.1); Creatinine, Blood 1.04 mg/dL (0.60-1.20); Globulin, Blood 4.6 g/dL (2.2-4.0); Potassium, Blood 3.7 mmol/L (3.5-5.5); Total Protein, Blood 8.5 g/dL (6.4-8.2)
== END | disposition home or self-care (01) ==
LOC: LAB 13:31 → LAB SHORT 13:31
PROVIDERS: Physician Assistant
DX: R10.9 Unspecified abdominal pain (principal)
CPT/HCPCS: 80053; 83690; 85025

== ENCOUNTER → 2025-09-10 | Outpatient (CLI) | payer MEDICARE, OTHER ==
[~2025-09-10] MED LIST changes: +PROM25 PO
[2025-09-14 16:26] LABS: CALPROTECTIN,FECAL 93 ug/g (<=49)
== END ==
LOC: LAB 12:00 → LAB SHORT 12:00
PROVIDERS: Physician Assistant Medical
DX: R10.30 Lower abdominal pain, unspecified (principal)
CPT/HCPCS: 83993